=== PATIENT | male | born 2000 | race Hispanic/Latino ===

== ENCOUNTER 2022-09-21 18:06 | Emergency (ER) | payer OTHER, SELFPAY ==
--- OUTSIDE RECORDS SUMMARY | 2022-09-21 18:09 | XMS REPORT | Continuity of Care Document ---
:2000 Author Organization [facility] t Address [address] [place] [id number] Care Team Providers Name Role Phone Unavailable Unavailable Unavailable Problems This patient has no known problems. Allergies, Adverse Reactions, Alerts This patient has no known allergies or adverse reactions. Medications This patient has no known medications. Procedures This patient has no known procedures. Results This patient has no known results.
--- NOTE | 2022-09-21 19:27 | RAD REPORT ---
EXAM DESCRIPTION: US - Scrotum Testicles - 09/21/2022 6:53 pm CLINICAL HISTORY: PAIN COMPARISON: No comparisons TECHNIQUE: Sonographic grayscale and color flow images of the scrotum were obtained. FINDINGS: The right testicle measures 4.4 x 2.4 x 3.1 centimeter. Diffusely increased vascularity th roughout the right testicular parenchyma on color duplex imaging. No intratesticular masses or eviden ce of testicular torsion. The left testicle measures 4.1 x 2.2 x 3.3 centimeter. No intratesticular masses or evidence of testi cular torsion. Both epididymides are normal in size. Increased vascularity along the right epididymis as well. No pathologic fluid collections. IMPRESSION: Increased vascularity along the right testis and epididymis, suggesting epididymo-orchit is.
--- NOTE | 2022-09-21 19:58 | ER ---
Nurse's Notes [facility] Name: Dung Lara Age: 22 yrs Sex: Male : 2000 Arrival Date: 09/21/2022 Time: 18:06 Bed 14 Private MD: Diagnosis: Epididymo-orchitis Presentation: 09/21 18:15 Chief complaint: Patient states: he started having right testicular swelling Wednesday ap3 09/19/22. patient reports the pain as a 7/10 on the pain scale. Coronavirus screen: At this time, the client does not indicate any symptoms associated with coronavirus-19. Ebola Screen: No symptoms or risks identified at this time. Initial Sepsis Screen: Does the patient meet any 2 criteria? No. Patient's initial sepsis screen is negative. Does the patient have a suspected source of infection? No. Patient's initial sepsis screen is negative. Risk Assessment: Do you want to hurt yourself or someone else? Patient reports no desire to harm self or others. Onset of symptoms was September 19, 2022. 18:15 Method Of Arrival: Ambulatory ap3 18:15 Acuity: HAMMAD 3 ap3 Triage Assessment: 18:17 General: Appears in no apparent distress. Behavior is calm, cooperative, appropriate ap3 for age. Pain: Complains of pain in right testicle Pain began 09/19/22. Neuro: Level of Consciousness is awake, alert, obeys commands, Oriented to person, place, time, situation. Cardiovascular: Patient's skin is warm and dry. Respiratory: Airway is patent Respiratory effort is even, unlabored, Respiratory pattern is regular, symmetrical. Historical: - Allergies: 18:17 No Known Allergies; ap3 - PMHx: 18:17 None; ap3 - Immunization history:: Client reports having NOT received the Covid vaccine. - Social history:: Smoking status: Reported history of juuling and/or vaping. Screenin:18 [facility] ED Fall Risk Assessment (Adult) History of falling in the last 3 months, ap3 including since admission No falls in past 3 months (0 pts). Abuse screen: Denies threats or abuse. Nutritional screening: No deficits noted. Tuberculosis screening: No symptoms or risk factors identified. Vital Signs: 18:15 BP 137 / 93; Pulse 75; Resp 17; Temp 98.3; Pulse Ox 98% ; Weight 81.65 kg; Pain 7/10; ap3 20:17 BP 128 / 81; Pulse 74; Resp 18 S; Pulse Ox 99% on R/A; as6 18:15 Pain Scale: Adult ap3 ED Course: 18:07 Patient arrived in ED. am2 18:14 Dang Soliman FNP-C is [facility]. kb 18:14 Yann Beard MD is Attending Physician. kb 18:17 Triage completed. ap3 18:18 Arm band placed on right wrist. ap3 18:56 US Scrotum Testicles In Process Unspecified. EDMS 19:42 Ramu Ortiz, RN is Primary Nurse. as6 20:17 Bed in low position. Call light in reach. Side rails up X 1. as6 20:18 No provider procedures requiring assistance completed. Patient did not have IV access as6 during this emergency room visit. Administered Medications: 20:12 Drug: Rocephin (cefTRIAXone) IM 500 mg Route: IM; Site: right vastus lateralis; as6 20:18 Follow up: Response: No adverse reaction as6 Medication: 20:18 VIS not applicable for this client. as6 Outcome: 19:57 Discharge ordered by MD. kb 20:18 Discharged to home ambulatory. as6 20:18 Condition: stable 20:18 Discharge instructions given to patient, Instructed on discharge instructions, follow up and referral plans. medication usage, Demonstrated understanding of instructions, follow-up care, medications, Prescriptions given X 1. 20:27 Patient left the ED. as6 Signatures: Dispatcher [employer] EDIA Dang Soliman FNP-C FNP-Ckb Moreno, Amanda am2 Peace Licona, RN RN ap3 Ramu Ortiz, RN RN as6
--- NOTE | 2022-09-21 19:58 | EDPHYS ---
Physician Documentation [facility] Name: Dung Lara Age: 22 yrs Sex: Male : 2000 Arrival Date: 09/21/2022 Time: 18:06 Bed 14 Private MD: Yann Little HPI: 09/21 18:38 This 22 yrs old Male presents to ER via Ambulatory with complaints of kb Testicular Pain. 18:38 The patient presents with scrotal pain, of the right side. Onset: The symptoms/episode kb began/occurred 2 day(s) ago. Modifying factors: The symptoms are alleviated by nothing, the symptoms are aggravated by nothing. Associated signs and symptoms: The patient has no apparent associated signs or symptoms. Severity of symptoms: At their worst the symptoms were moderate, in the emergency department the symptoms are unchanged. The patient has not experienced similar symptoms in the past. The patient has not recently seen a physician. Pt reports right testicular pain with intermittent swelling that started 2 nights ago. Historical: - Allergies: 18:17 No Known Allergies; ap3 - PMHx: 18:17 None; ap3 - Immunization history:: Client reports having NOT received the Covid vaccine. - Social history:: Smoking status: Reported history of juuling and/or vaping. ROS: 18:37 Constitutional: Negative for fever, chills, and weight loss. kb 18:37 : Positive for testicular pain of the right testicle. 18:37 All other systems are negative. Exam: 18:37 Constitutional: This is a well developed, well nourished patient who is awake, alert, kb and in no acute distress. Head/Face: Normocephalic, atraumatic. ENT: Moist Mucous membranes Cardiovascular: Regular rate and rhythm with a normal S1 and S2. No gallops, murmurs, or rubs. No pulse deficits. Respiratory: Respirations even and unlabored. No increased work of breathing. Talking in full sentences Abdomen/GI: Soft, non-tender. No distention Skin: Warm, dry with normal turgor. Normal color. MS/ Extremity: Pulses equal, no cyanosis. Neurovascular intact. Full, normal range of motion. Neuro: Awake and alert, GCS 15, oriented to person, place, time, and situation. Moves all extremities. Normal gait. Vital Signs: 18:15 BP 137 / 93; Pulse 75; Resp 17; Temp 98.3; Pulse Ox 98% ; Weight 81.65 kg; Pain 7/10; ap3 20:17 BP 128 / 81; Pulse 74; Resp 18 S; Pulse Ox 99% on R/A; as6 18:15 Pain Scale: Adult ap3 MDM: 18:17 Patient medically screened. kb 18:37 Differential diagnosis: torsion, epididymitis, abscess. Data reviewed: vital signs, kb nurses notes. 19:56 Counseling: I had a detailed discussion with the patient and/or guardian regarding: the kb historical points, exam findings, and any diagnostic results supporting the discharge/admit diagnosis, radiology results, the need for outpatient follow up, a family practitioner, to return to the emergency department if symptoms worsen or persist or if there are any questions or concerns that arise at home. 09/21 18:14 Order name: Scrotum Testicles; Complete Time: 19:30 kb Administered Medications: 20:12 Drug: Rocephin (cefTRIAXone) IM 500 mg Route: IM; Site: right vastus lateralis; as6 20:18 Follow up: Response: No adverse reaction as6 Disposition Summary: 09/21/22 19:57 Discharge Ordered Location: Home kb Condition: Stable kb Diagnosis - Epididymo-orchitis kb Followup: kb - With: Emergency Department - When: As needed - Reason: Worsening of condition Followup: kb - With: Private Physician - When: 2 - 3 days - Reason: Recheck today's complaints, Continuance of care, Re-evaluation by your physician Discharge Instructions: - Discharge Summary Sheet kb - Epididymitis kb Forms: - Medication Reconciliation Form kb - Thank You Letter kb - Antibiotic Education kb - Prescription Opioid Use kb - Work release form as6 Prescriptions: - Doxycycline Hyclate 100 mg Oral Tablet - take 1 tablet by ORAL route every 12 hours; 20 tablet; Refills: 0, Product kb Selection Permitted Signatures: Dispatcher [employer] Dang Bautista FNP-C FNP-Ckb Prokisch, Amanda RN RN ap3 Ramu Ortiz RN RN as6
[2022-09-21] MEDS ORDERED: CEFTRIAXONE 500 MG/VIAL ONE (20:12)
[2022-09-21] MEDS ORDERED: LIDOCAINE 1% MPF 2 ML AMPULE ONE (20:12)
[2022-09-21 21:22] VITALS: TEMP 98.3
[2022-09-21 21:23] VITALS: BP 128/81; O2SAT 99
== END 2022-09-21 20:27 | disposition home or self-care (01) ==
LOC: ER 18:06
DX: N45.3 Epididymo-orchitis (principal)
CPT/HCPCS: 76870; 96372; 99284

== ENCOUNTER 2024-05-10 15:41 | Emergency (ER) | payer SELFPAY ==
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
[2024-05-10] MEDS ORDERED: FENTANYL CITR 100 MCG/2 ML ONE (16:25)
[2024-05-10] MEDS ORDERED: TDAP (DIPHTH,PERTUSS(ACELL),TET VAC) 0.5 ML VIAL IMVAC ONE (16:25)
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
[2024-05-10 16:34] LABS: Absolute Lymphocytes (CBC) 1.4 K/uL (0.7-4.9); Absolute Monocytes 0.8 K/uL (0.1-1.3); Absolute Neutrophil 12.5 K/uL (1.8-8.0); Basophils % 0.2 % (0-1.3); Eosinophils % 0.2 % (0-4.4); Hematocrit 45.2 % (39.6-49.0); Hemoglobin 15.9 g/dL (13.6-17.9); Lymphocytes % 9.3 % (15.3-44.8); MCH 30.6 pg (27.0-35.0); MCHC 35.3 g/dL (32.0-36.0); MCV 86.7 fL (80-100); MPV 7.9 fL (7.6-11.3); Monocytes % 5.6 % (3.3-12.3); Neutrophils % 84.7 % (41.7-73.7); Nucleated RBC Absolute Count 0.1 (0-0); Nucleated Red Blood Cells % 0.3 % (0-0); Platelets 304 thou/uL (152-406); RBC Red Blood Cell Count 5.21 M/uL (4.33-5.43); Red Cell Distribution Width 11.9 % (12.1-15.2)
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
[2024-05-10] MEDS ORDERED: KETOROLAC 30 MG/ML INJ ONE (17:03)
[2024-05-10] MEDS ORDERED: HYDROCODONE/APAP 5/325 MG TAB ONE (17:03)
[2024-05-10 17:21] VITALS: TEMP 98.6
[2024-05-10 17:23] VITALS: BP 134/94; O2SAT 100
== END 2024-05-10 17:15 | disposition home or self-care (01) ==
LOC: ER 15:41
DX: S02.2XXA Fracture of nasal bones, initial encounter for closed fracture (principal); S00.83XA Contusion of other part of head, initial encounter; Y04.2XXA Assault by strike against or bumped into by another person, initial encounter; Y93.9 Activity, unspecified; Y92.9 Unspecified place or not applicable; F17.290 Nicotine dependence, other tobacco product, uncomplicated; Z23 Encounter for immunization
CPT/HCPCS: 36415; 70450; 70486; 71045; 76377; 80048; 85025; 96372; 96374; 96375; 99284; J3010